=== PATIENT | male | born 1955 | race Two or more races ===

== ENCOUNTER 2020-01-16 19:18 | Emergency (ER) | payer MEDICAID ==
[~2020-01-16] VITALS: Ht 167.6 cm; Wt 59.0 kg
[2020-01-16] MEDS ORDERED: ACETAMINOPHEN 500 MG TAB PO ONE (23:15)
[2020-01-16] MEDS ORDERED: IBUPROFEN 800 MG TAB PO ONE (23:15)
[2020-01-16 23:27] VITALS: BP 157/88
== END 2020-01-17 00:43 | disposition home or self-care (01) ==
LOC: ER 19:18
DX: S52.501A Unspecified fracture of the lower end of right radius, initial encounter for closed fracture (principal); S32.019A Unspecified fracture of first lumbar vertebra, initial encounter for closed fracture; W19.XXXA Unspecified fall, initial encounter; Y93.89 Activity, other specified; Y92.89 Other specified places as the place of occurrence of the external cause; Y99.8 Other external cause status
CPT/HCPCS: 71045; 71250; 73090; 73110